=== PATIENT | female | born 1955 | race Caucasian/White ===

== ENCOUNTER 2017-10-19 09:49 | Emergency (ER) | payer OTHER ==
[~2017-10-19] VITALS: Ht 160 cm; Wt 79.5 kg
[2017-10-19 09:51] VITALS: BP 148/65; TEMP 98.6
[2017-10-19] MEDS ORDERED: ZOCOR 20MG20 MG PO ×2 (10:31→11:17)
[2017-10-19] MEDS ORDERED: PAXIL 20MG20 MG PO ×2 (10:32→11:17)
[2017-10-19] MEDS ORDERED: NEURONTIN300 MG/CAP (10:32)
[2017-10-19] MEDS ORDERED: ESTRACE0.5 MG PO ×2 (10:33→11:17)
[2017-10-19] MEDS ORDERED: AMBIEN CR6.25 MG PO (10:33)
[2017-10-19 10:34] LABS: BASO % 0.8 % (0.0-2.0); EOS # 0.1 (0.0-0.7); EOS % 1.8 % (0-4.0); GRAN # 3.5 (1.4-6.5); GRAN % 70.7 % (42.2-75.2); HEMATOCRIT 38.6 % (37.0-47.0); HEMOGLOBIN 12.8 g/dl (12.5-16.0); LYMPH # 0.8 (1.2-3.4); LYMPH % 15.2 % (20.0-51.0); MEAN CELL VOLUME 93 fl (80.0-100.0); MEAN CORPUSCULAR HEMOGLOBIN 31 pg (27.0-31.0); MEAN CORPUSCULAR HGB CONC 33 g/dl (33.0-37.0); MEAN PLATELET VOLUME 9.7 fl (7.4-10.4); MONO # 0.6 (0.1-0.6); MONO % 11.3 % (1.7-9.3); PLATELET COUNT 252 K/mm3 (130-400); RED BLOOD COUNT 4.16 M/mm3 (4.10-5.30); REDCELL DISTRIBUTION WIDTH-CV 13.5 % (11.5-14.5)
[2017-10-19 10:42] LABS: ALBUMIN 4.3 gm/dL (3.5-5.0); BILIRUBIN,TOTAL 0.3 mg/dL (0.0-1.0); CALCIUM 9.1 mg/dL (8.4-10.2); CREATININE, serum 0.75 mg/dL (0.52-1.25); TOTAL PROTEIN 7.2 gm/dL (6.4-8.2)
[2017-10-19] MEDS ORDERED: TESSALON P100 MG/CAP PO (11:17)
[2017-10-19 11:40] VITALS: PULSE 88
== END 2017-10-19 11:43 | disposition home or self-care (01) ==
LOC: COL.ER 09:49
PROVIDERS: Family Medicine
DX: J11.1 Influenza due to unidentified influenza virus with other respiratory manifestations (principal)
CPT/HCPCS: J7030